=== PATIENT | female | born 1995 | race Caucasian/White ===

== ENCOUNTER 2020-01-05 11:19 | Outpatient (CLI) | payer SELFPAY ==
[~2020-01-05] VITALS: Ht 160 cm; Wt 79.1 kg
[2020-01-05 11:30] VITALS: BP 123/77; PULSE 95; TEMP 98.4
--- NOTE | 2020-01-05 11:53 | NUR ---
1130 PATIENT HERE FOR COMPLAINTS OF CONTRACTIONS. TRANSLATE USED SINCE PATIENT SPEAKS NO CROATIAN. SVE /-3 VERY POSTERIOR. EFM ON [address] LUO UPDATED AND ORDERS TO MONITOR FOR ONE HOUR AND RECHECK.
[2020-01-05 12:00] VITALS: BP 116/68; PULSE 97
--- NOTE | 2020-01-05 12:14 | NUR ---
1210 PATIENT REST ON LEFT SIDE. EATING A POPCICLE AND DRINKING WATER. PO HYDRATE PER DR LUO ORDERS.
[2020-01-05 12:29] VITALS: BP 99/67; PULSE 96; TEMP 98.4
== END 2020-01-05 12:34 | disposition home or self-care (01) ==
LOC: LDRO 11:19
DX: Z34.93 Encounter for supervision of normal pregnancy, unspecified, third trimester (principal); Z3A.39 39 weeks gestation of pregnancy

== ENCOUNTER 2020-01-12 07:49 | Inpatient (IN) | payer OTHER ==
[~2020-01-12] VITALS: Ht 160 cm; Wt 80.5 kg
[2020-01-12] VITALS (58 sets, daily range): BP systolic 88–1515; BP diastolic 48–91; PULSE 74–115; TEMP 97.4–99.1
--- NOTE | 2020-01-12 08:15 | NUR ---
USING GOOGLE TRANSLATE TO COMMUNICATE WITH PT AND FAMILY.
[2020-01-12] MEDS ORDERED: ZOLOFT 50MG50 MG PO (08:29)
[2020-01-12] MEDS ORDERED: PRENATAL TABLET PO (08:29)
[2020-01-12] MEDS ORDERED: PROFERRIN ES12 MG (08:31)
--- NOTE | 2020-01-12 08:55 | NUR ---
PT HERE FOR INDUCTION OF LABOR. FATHER OF BABY HERE WITH PT. LANGUAGE BARRIER. GOOGLE TRANSLATE USED TO EXPLAIN PLAN OF CARE. FHT'S FOUND IN THE 130'S WITH MINIMAL TO MODERATE VARIABILITY AND ACCELS. IV STARTED IN LEFT HAND WITH LR INFUSING WITHOUT DIFFICULTY. ASSESSMENT COMPLETED. DR LUO HERE AT 0846: SVE /-2. AROM ATTEMPTED AT 0850. THINKS HE BROKE HER WATER BUT IS UNCERTAIN THERE WAS NO LARGE GUSH OF FLUID. PITOCIN STARTED AT 0846 AT 2MU/MIN PER ORDER.
[2020-01-12 09:39] LABS: BASO % 0.3 % (0.0-2.0); EOS # 0.1 (0.0-0.7); EOS % 1.7 % (0-4.0); GRAN # 3.2 (1.4-6.5); GRAN % 51.2 % (42.2-75.2); HEMOGLOBIN 11.1 g/dl (12.5-16.0); LYMPH # 2.3 (1.2-3.4); LYMPH % 36.1 % (20.0-51.0); MEAN CELL VOLUME 85 fl (80.0-100.0); MEAN CORPUSCULAR HEMOGLOBIN 27 pg (27.0-31.0); MEAN CORPUSCULAR HGB CONC 32 g/dl (33.0-37.0); MEAN PLATELET VOLUME 11.8 fl (7.4-10.4); MONO # 0.6 (0.1-0.6); MONO % 9.9 % (1.7-9.3); PLATELET COUNT 241 K/mm3 (130-400); RED BLOOD COUNT 4.06 M/mm3 (4.10-5.30); REDCELL DISTRIBUTION WIDTH-CV 15.1 % (11.5-14.5)
[2020-01-12 09:40] LABS: HEMATOCRIT 34.3 % (37.0-47.0)
--- NOTE | 2020-01-12 09:45 | NUR ---
PT REPORTS SHE IS FEELING HER CONTRACTIONS MORE. FEELING A LITTLE MORE PAIN.
--- NOTE | 2020-01-12 10:15 | NUR ---
FHT'S WITH RECURRENT SUBTLE LATE DECELS AND MINIMAL VARIABILITY. PT REPOSITIONED AND BOLUS STARTED.
--- NOTE | 2020-01-12 10:30 | NUR ---
FHT'S WITH ONE LATE DECEL. VARIABILITY CHANGE TO MODERATE WITH AN ACCEL IN HEART RATE.
--- NOTE | 2020-01-12 10:45 | NUR ---
DR LUO TO [facility]. EXAMINES MONITOR STRIP AND SAYS BABY LOOKS BETTER, LOOKS GOOD, AND WANTS THE PITOCIN TO BE INCREASED. FHT'S WITH MODERATE VARIABILITY AND ACCELS. PT BREATHING THROUGH CONTRACTIONS.
--- NOTE | 2020-01-12 11:15 | NUR ---
SVE /-2. PT CONTINUING TO BREATHE THROUGH CONTRACTIONS. DISCUSSED THE NEED TO DO COVID SWAB PT HAS NOT HAD ONE DONE YET AND SHE AGREES TO IT
--- NOTE | 2020-01-12 11:32 | NUR ---
COVID SWAB AT 1123
--- NOTE | 2020-01-12 12:00 | NUR ---
PT REQUESTING A POPSICLE. DR LUO IN AT 1200. SVE UNCHANGED. FHT'S WITH MINIMAL TO MODERATE VARIABILITY, ONE SUBTLE LATE DECEL, AND ACCELS
--- NOTE | 2020-01-12 14:00 | NUR ---
DR LUO CALLED HERE TO CHECK ON PT. TOLD HIM THIS RN WILL CHECK PT SHORTLY AND CALL BACK WITH STATUS UPDATE. PT SOCIALIZING WITH FAMILY. AT 1355 /+1. CERVIX REMAINS VERY POSTERIOR. HEAD HAS CAME DOWN A GREAT DEAL. CALLED DR LUO BACK WITH UPDATE AND HE STATES TO KEEP INCREASING THE PITOCIN TO A MAX OF 30MU
--- NOTE | 2020-01-12 14:15 | NUR ---
PT BREATHING HEAVILY WITH CONTRACTIONS. DOES NOT WANT ANY PAIN MEDICATION AT THIS POINT. ENCOURAGED PROPER BREATHING TECHNIQUES
--- NOTE | 2020-01-12 15:15 | NUR ---
PT WANTING AN EPIDURAL. CALLED ZIGGY CURRY, AT 1505 TO COME FOR EPIDURAL PLACEMENT. LR BOLUS STARTED.
--- NOTE | 2020-01-12 15:45 | NUR ---
CHRISTOPHER GUDINO CRNA, IN AT 1535 FOR EPIDURAL PLACEMENT. BRITTALIVE IN COMPANION, EXPLAINED PROCEDURE OVER THE PHONE TO PT AND PT VERBALIZES UNDERSTANDING AND GIVES CONSENT VERBALLY FOR PROCEDURE. PT SITTING FOR EPIDURAL.
--- NOTE | 2020-01-12 16:00 | NUR ---
TEST DOSE FOR EPIDURAL AT 1550 WITH NO ABNORMAL SYMPTOMS OBSERVED OR REPORTED. PT REPOSITIONED LYING DOWN. CONTRACTIONS DIFFICULT TO MONITOR. TOCO REPOSITIONED. PT REPORTING SOME PAIN RELIEF WITHIN 10 MINUTES OF TEST DOSE.
--- NOTE | 2020-01-12 16:15 | NUR ---
PT RESTING IN BED. REPORTS SHE IS COMFORTABLE. BP DOWN SLIGHTLY. FLUID BOLUS STARTED. PITOCIN TO 24MU CONTRACTIONS ARE IRREGULAR AND HAVE SPACED OUT
--- NOTE | 2020-01-12 16:15 | NUR ---
HECTOR CATHETER PLACED AT 1615 WITH CLEAR, YELLOW URINE RETURNED. SVE /+1. CERVIX STILL POSTERIOR. CALLED DR LUO AT 1621 WITH UPDATE ON EPIDURAL PLACEMENT, HECTOR PLACEMENT, AND SVE.
--- NOTE | 2020-01-12 17:00 | NUR ---
SVE /+1. CERVIX NOW IN MID POSITION. PT COMFORTABLE WITH EPIDURAL.
--- NOTE | 2020-01-12 17:15 | NUR ---
CALLED DR LUO AT 1710 WITH SVE UPDATE. HE WILL COME OVER IN ABOUT AN HOUR.
--- NOTE | 2020-01-12 18:15 | NUR ---
1814- BEDSIDE REPORT RECIEVED. GOOGLE TRANSLATE USED FOR HANDOFF. PT DENIES NEEDS AT THIS TIME. 1817- DR LUO AT BEDSIDE. 1819- SVE BY DR LUO, WITH NO CHANGE. IUPC PLACED AND ZEROED. DR LUO ANSWERS PT'S QUESTIONS WITH GOOGLE TRANSLATE AT BEDSIDE.
--- NOTE | 2020-01-12 19:30 | NUR ---
1929- NURSE TO BEDSIDE. SVE -/-1. PITOCIN INCREASED TO 28MUNITS. PT TURNED TO LEFT WEDGE. PT DENIES FURTHER NEEDS AT THIS TIME. 2029- NURSE TO BEDSIDE. SVE /. PITOCIN INCREASED TO 30MUNITS. PT DENIES NEEDS OR PAIN AT THIS TIME. 2119- DR LUO CALLS AND IS UPDATED ON PT'S SVE, STRIP, PITOCIN INCREASES, AND COMFORT. WILL RECHECK CERVIX AND CALL DR HUSSEIN.
--- NOTE | 2020-01-12 21:25 | NUR ---
2124- SVE BY THIS NURSE , WITH BLOODY SHOW ON GLOVE. PT ALSO COMPLAINING OF PAIN IN ABDOMEN AND BUTT. NURSE HELPED PT TO HIT EPIDURAL TRAFFIC I MANAGER BUTTON. 2130- DR LUO CALLED BACK AND UPDATED ON CURRENT SVE, DISCOMFORT, AND BLOODY SHOW. STATES TO CHECK PT AGAIN IN AN HOUR AND CALL HIM TO UPDATE.
--- NOTE | 2020-01-12 22:30 | NUR ---
2230- SVE BY THIS NURSE 1. PT IS COMFORTABLE WITH EPIDURAL AT THIS TIME. 2233- DR LUO CALLED AND UPDATED ON PT CURRENT SVE AND STRIP INTERPRETATION. STATES TO RECHECK IN AN HOUR AND TO PUSH WITH PT PRIOR TO CALLING FOR DELIVERY. STATES HE HAS REVIEWED STRIP. 2335- PT STATES SHE IS HAVING SOME PAIN IN HER BOTTOM. SVE BY THIS NURSE 2. PT ASSISTED WITH EPIDURAL HAND MOLD MAKER DOSE. 2341- [facility] CALLED. THROUGH HEALTHCARE ECONOMICS CONSULTANT NURSE DISCUSSES PLAN OF CARE FOR PUSHING, DELIVERY, RECOVERY, AND . COACHED PUSHING, PLACENTA, DELIVERY, REPAIR, AND BABY DISCUSSED. QUESTIONS ANSWERED. PT RELAYS THROUGH HEALTHCARE ECONOMICS CONSULTANT THAT SHE FEELS COMFORTABLE PUSHING AT THIS TIME WITHOUT FURTHER TRANSLATION. 2355- PT POSITIONED IN [place] WITHOUT BED BROKEN DOWN AND BEGINS COACHED PUSHING WITH CONTRACTIONS. 0015- PT FEELS WARM TO TOUCH. TEMPERATURE 99.9 ORAL. 0038- PT PUSHING WELL. DR LUO CALLED FOR DELIVERY. NURSERY NURSE CALLED AND UPDATED WELL. 0050- DR LUO AT BEDSIDE FOR DELIVERY. BED BROKEN DOWN. 0055- IUPC REMOVED. 0105- SPONTANEOUS VAGINAL DELIVERY OF VIABLE FEMALE, TO MOTHER'S ABDOMEN AND CARE OF NURSERY STAFF. 0108- SPONTANEOUS DELIVERY OF PLACENTA, EXAMINED BY DR LUO. REPAIR IN PROGRESS. 0112- METHERGINE 0.2MG IM GIVEN VERBALLY ORDERED BY DR LUO FOR BLEEDING. 0115- VAGINAL BLEEDING IMPROVED. REPAIR COMPLETE. PERICARE PROVIDED. ICEPACK TO PERINEUM. FEET DWON FROM FOOTPLATES AND RECOVERY STARTED.
[2020-01-13] VITALS (15 sets, daily range): BP systolic 100–161; BP diastolic 59–96; PULSE 78–141; TEMP 97.2–100.4
--- NOTE | 2020-01-13 04:30 | NUR ---
0430- IV SITE TO SALINE LOCK. EPIDURAL CATHETER REMOVED CHARTED. PT ASSISTED TO BATHROOM WITH STANDBY ASSIST. PT ABLE TO VOID 500ML WITHOUT DIFFICULTY. PT PERFORMS PERICARE. CLEAN GOWN, PAD, AND PANTIES PROVIDED. 0445- PT ASSISTED TO ROOM, AMBULATES TO ROOM 207 WITHOUT DIFFICULTY. BELONGINGS SENT WITH PT. PT ORIENTED TO ROOM AND CALL LIGHTS. 0450- BABY BACK TO ROOM. BULB SYRINGE DEMONSTRATED. SANDWICH BOX PROVIDED. PT DENIES FURTHER NEEDS AT THIS TIME.
--- NOTE | 2020-01-13 07:15 | NUR ---
This RN at bedside for shift assessment. Non-slovenian speaking, first time mother. Pt asks appropriate questions and verbalizes understanding for POC. Social service consult initiated for discharge planning and resources.
--- NOTE | 2020-01-13 08:42 | NUR ---
Initial visit; Patient is Uzbek speaking, Patients Transporter communicated by making the sign of the cross and offering God's blessings. Patient nodded 'yes.'
--- NOTE | 2020-01-13 10:04 | NUR ---
Engineering Faculty received a consult for the patient due to non-Guyanese speaking and first time mother. NEWTON met with the patient. The patient lives at home with her partner. The patient has lived in [place] for about a year. She states she has the supplies she needs. The patient is planning on and had some concerns. The nurse has not yet met with the patient and will later this day. NEWTON provided the [facility] Resource Guide and reviewed some of the resources in the guide. NEWTON collaborated the above information with the patient's nurse.
--- NOTE | 2020-01-13 21:23 | NUR ---
Report recieved. Ambulating in room and holding infant. Updated whiteboard and reviewed POC. Questions invited and answered.
[2020-01-14 08:55] VITALS: BP 93/59; PULSE 93; TEMP 97.6
[2020-01-14] MEDS ORDERED: IBU600 MG PO (09:20)
== END 2020-01-14 13:00 | disposition home or self-care (01) | DRG 806 ==
LOC: OB 07:49 → LDR 07:49 → OB 15:00
PROVIDERS: ADMIT Obstetrics & Gynecology
PROC: 10E0XZZ Delivery of Products of Conception, External Approach (ICD-10-PCS; principal; 2020-01-12)
PROC: 10907ZC Drainage of Amniotic Fluid, Therapeutic from Products of Conception, Via Natural or Artificial Opening (ICD-10-PCS; 2020-01-12)
PROC: 0W8NXZZ Division of Female Perineum, External Approach (ICD-10-PCS; 2020-01-12)
DX: O48.0 Post-term pregnancy (principal); O72.1 Other immediate postpartum hemorrhage; Z37.0 Single live birth; O99.02 Anemia complicating childbirth; D64.9 Anemia, unspecified; Z3A.40 40 weeks gestation of pregnancy
CPT/HCPCS: J2210; J2590; J7120